=== PATIENT | female | born 1955 | race Two or more races ===

== ENCOUNTER 2017-07-30 08:06 | Day surgery (SDC) | payer OTHER ==
[2017-07-29 15:08] VITALS: BMI 25.0
[2017-07-30 10:09] VITALS: TEMP 97.8
[2017-07-30] MEDS ORDERED: PROPOFOL 20 ML ONE ×5 (10:18)
[2017-07-30 13:07] VITALS: BP 114/68; PULSE 69
--- NOTE | 2017-08-02 16:40 | PATH ---
Surgical Pathology Report Patient Name: DILIP RAIN [facility]. Rec. #: [id number] /Age/Gender: 1955 (Age: 61) / F Account: [id number] Location: [facility]-ENDOSCOPY Taken: 07/30/2017 Received: 07/30/2017 Reported: 08/02/2017 Physicians: Umberto Fermin M.D. Specimen(s) Received A: BX SIGMOID POLYP B: BX TRANSVERSE COLON POLYP C: BX RECTAL POLYP Clinical History Colon screening Diverticulosis, sigmoid and transverse colon polyps, redundant sigmoid, hemorrhoids, rectal polyp Final Diagnosis A. SIGMOID, POLYP, BIOPSY: POLYPOID COLONIC MUCOSA WITHOUT SIGNIFICANT PATHOLOGIC FINDINGS. B. TRANSVERSE COLON, POLYP, BIOPSY: POLYPOID COLONIC MUCOSA WITH PROMINENT LYMPHOID AGGREGATE. C. RECTUM, POLYP, BIOPSY: POLYPOID SQUAMOCOLUMNAR MUCOSA WITHOUT SIGNIFICANT PATHOLOGIC FINDINGS. Electronically Signed Zulma Diego M.D. Gross Description A. Received in formalin, labeled "biopsy sigmoid polyp" is a henriquez, irregular portion of soft tissue measuring 0.2 cm. in greatest dimension. The specimen is submitted in toto in one cassette. B. Received in formalin, labeled "biopsy transverse colon polyp" are 4 henriquez, irregular portions of soft tissue ranging from 0.1-0.4 cm. in greatest dimension. The specimens are submitted in toto in one cassette. C. Received in formalin, labeled "biopsy rectal polyp" is a henriquez, irregular portion of soft tissue measuring 0.2 cm. in greatest dimension. The specimen is submitted in toto in one cassette. 07/30/201707/30/2017
== END 2017-07-30 11:20 | disposition home or self-care (01) ==
LOC: JASU-ENDO 08:06
PROVIDERS: ATTEND Internal Medicine Gastroenterology
PROC: 0DBL8ZX Excision of Transverse Colon, Via Natural or Artificial Opening Endoscopic, Diagnostic (ICD-10-PCS; 2017-07-30)
PROC: 0DBN8ZX Excision of Sigmoid Colon, Via Natural or Artificial Opening Endoscopic, Diagnostic (ICD-10-PCS; principal; 2017-07-30 09:00)
DX: Z12.11 Encounter for screening for malignant neoplasm of colon (principal); D12.5 Benign neoplasm of sigmoid colon; D12.3 Benign neoplasm of transverse colon; K57.30 Diverticulosis of large intestine without perforation or abscess without bleeding
CPT/HCPCS: 88305-TC

== ENCOUNTER 2020-07-10 14:45 | Emergency (ER) | payer OTHER ==
[2020-07-10] MEDS ORDERED: IBUPROFEN 600 MG TABLET (FP) PO ONE ×2 (15:01→15:23)
--- NOTE | 2020-07-10 15:01 | PDOC ---
Rapid Medical Evaluation Time Seen by Provider: 07/10/20 14:57 Medical Evaluation: Allergies Allergy/AdvReac Type Severity Reaction Status Date / Time No Known Allergies Allergy Verified 04/10/13 18:17 07/10/20 14:58 I have performed a brief in person evaluation of this patient. CC: left ankle pain s/p slip and fall 1 week ago PE: Foot diffusely tender. No bony deformity noted. No pain with calf squeeze Orders: xray, Motrin Patient will proceed to ED for further evaluation. Discharge Disposition - Diagnosis Left ankle pain - Referrals - Patient Instructions - Post Discharge Activity
[2020-07-10 15:02] VITALS: BP 106/67; PULSE 86; TEMP 98.3; BMI 26.6
--- OUTSIDE RECORDS SUMMARY | 2020-07-10 15:10 | XMS ---
:1955 Author Organization [facility] Care Team Providers Name Role Phone ED STAFF PHYSICIANMARS Unavailable Unavailable ED STAFF PHYSICIAN, STAFF Unavailable Unavailable ED STAFF PHYSICIANJAN Unavailable Unavailable Re-disclosure Warning The records that you are about to access may contain information from federally- assisted alcohol or drug abuse programs. If such information is present, then the following federally mandated warning applies: This information has been disclosed to you from records protected by federal confidentiality rules (42 CFR part 2). The federal rules prohibit you from making any further disclosure of this information unless further disclosure is expressly permitted by the written consent of the person to whom it pertains or as otherwise permitted by 42 CFR part 2. A general authorization for the release of medical or other information is NOT sufficient for this purpose. The Federal rules restrict any use of the information to criminally investigate or prosecute any alcohol or drug abuse patient.The records that you are about to access may contain highly sensitive health information, the redisclosure of which is protected by Article 27-F of the [place] State Public Health law. If you continue you may haveaccess to information: Regarding HIV / AIDS; Provided by facilities licensed or operated by the [facility] Office of Mental Health; or Provided by the [facility] Office for People With Developmental Disabilities. If such information is present, then the following [facility] mandated warning applies: This information has been disclosed to you from confidential records which are protected by state law. State law prohibits you from making any further disclosure of this information without the specific written consent of the person to whom it pertains, or as otherwise permitted by law. Any unauthorized further disclosure in violation of state law may result in a fine or detention sentence or both. A general authorization for the release of medical or other information is NOT sufficient authorization for further disclosure. Encounters Encounter Providers Location Date Indications Data Source(s ) Emergency Attender: MARS ED H 09/04/2019 [facility] STAFF 01:01:00 PM EST Medical C enter PHYSICIANAttender: - 09/04/2019 STAFF ED STAFF 05:35:00 PM EST PHYSICIANAdmitter: MARS ED STAFF PHYSICIAN Patient discharged. Emergency Attender: JAN ED STAFF H 08/31/2019 11:13:00 AM [facility] PHYSICIANAttender: MARS [place] EST - 08/31/2019 [facility] STAFF PHYSICIANAttender: STAFF 01:24:00 PM EST ED STAFF PHYSICIANAdmitter: JAN ED STAFF PHYSICIAN Patient discharged. Outpatient [facility] Care 05/17/2019 12:00:00 AM eCW3 ([facility] A28 EDT - 05/17/2019 12:00:00 [facility]) AM EDT Medications Medication Brand Start Product Dose Route Administrative Pharmacy [facility] Indications Reaction Description Data Name Date Form Instructions Instructions Source(s) Diclofenac Diclof 03/28/ active Diclofen ac eCW3 Sodium 0.01 2019 Sodium 1 % (H udson MG/MG Sodium 12:00: [facility] Topical Gel 1 % 00 AM [facility] Diclofenac EDT Care) Sodium 1 % Humidifier Humidi 01/06/ active Humidifi er - eCW3 - fier - 2019 ([place] 12:00: [facility] 00 AM Health EDT Care) Loratadine Lorata 12/31/ 1.0 active Loratadi ne eCW3 10 MG Oral dine 2019 {tabl 10 MG ([place] Tablet 10 MG 12:00: et} [facility] 00 AM Health EDT Care) Ibuprofen Advil 05/17/ suspend Advil 200 MG eCW3 200 MG Oral 200 MG 2018 ed ([place] Tablet 12:00: [facility] [Advil] 00 AM Health Advil 200 EDT Care) MG Ibuprofen Advil 05/17/ active Advil 200 MG eCW3 200 MG Oral 200 MG 2019 ([place] Tablet 12:00: [facility] [Advil] 00 AM Health Advil 200 EDT Care) MG Insurance Providers Payer name Policy type Policy ID Covered Covered constitution party's Policy P nayana / Coverage constitution party ID relationship to Glaser Inf ormation type glaser MVP [place] [id number] SP [id number] HMO MVP/HHP O [id number] 01 [id number] O MVP/HHP O [id number] 01 [id number] 300 [place] O [id number] 01 [id number] 300 HEALTH BELLAMY O [id number] 01 [id number] 300 HEALTH [place] [id number] self [id number] HEALTH Problems, Conditions, and Diagnoses Code Display Name Description Problem Type Effective Data Sour ce(s) Dates G43.009 Migraine without Migraine without Problem 01/01/2020 eC W3 ([place] aura and without aura and without 12:00:00 AM [facility] status status EDT Care) migrainosus, not migrainosus, not intractable intractable J31.0 Other rhinitis Other rhinitis Problem 01/01/2020 eCW3 ( [place] 12:00:00 AM [facility] EDT Care) M54.32 Sciatica, left Sciatica, left Problem 12/04/2019 eCW3 ( [place] side side 12:00:00 AM [facility] EDT Care) M54.32 Sciatica, left Sciatica, left Problem 12/04/2019 eCW3 ( [place] side side 12:00:00 AM [facility] EDT Care) E55.9 Vitamin D Vitamin D Problem 12/02/2019 eCW3 ([place] deficiency deficiency 12:00:00 AM [facility] EDT Care) E55.9 Vitamin D Vitamin D Problem 12/02/2019 eCW3 ([place] deficiency deficiency 12:00:00 AM [facility] EDT Care) H35.372 Epiretinal Epiretinal Problem 11/10/2019 eCW3 ([place] membrane (ERM) of membrane (ERM) of 12:00:00 AM [facility] left eye left eye EST Care) H35.372 Epiretinal Epiretinal Problem 11/10/2019 eCW3 ([place] membrane (ERM) of membrane (ERM) of 12:00:00 AM [facility] left eye left eye EST Care) K90.49 Food intolerance Food intolerance Problem 10/27/2019 eC W3 ([place] 12:00:00 AM [facility]) K90.49 Food intolerance Food intolerance Problem 10/27/2019 eC W3 ([place] 12:00:00 AM [facility]) I10 Essential ESSENTIAL Diagnosis 09/04/2019 [facility] (primary) (PRIMARY) 01:01:00 PM Medical B[facility] r hypertension HYPERTENSION EST N39.0 Urinary tract URINARY TRACT Diagnosis 09/04/2019 [facility] barajass infection, site INFECTION, SITE 01:01:00 PM Med ical Center not specified NOT SPECIFIED EST K59.00 Constipation, CONSTIPATION, Diagnosis 09/04/2019 [facility] sephs unspecified UNSPECIFIED 01:01:[address] EST R10.30 Lower abdominal LOWER ABDOMINAL Diagnosis 09/04/2019 [facility] pain, unspecified PAIN, UNSPECIFIED 01:01:00 PM Medical Center EST Y99.8 Other external OTHER EXTERNAL Diagnosis 08/31/2019 [facility] cause status CAUSE STATUS 11:13:00 AM Medical C enter EST Y92.89 Other specified OTH PLACES THE Diagnosis 08/31/2019 [facility] places as the PLACE OF 11:13:[address]ter place of OCCURRENCE OF THE EST occurrence of the EXTERNAL CAUSE external cause Y93.9 Activity, ACTIVITY, Diagnosis 08/31/2019 [facility] unspecified UNSPECIFIED 11:13:[address] EST X58.XXXA Exposure to other EXPOSURE TO OTHER Diagnosis 08/31/2019 [facility] specified factors, SPECIFIED 11:13:00 AM Medic al Center initial encounter FACTORS, INITIAL EST ENCOUNTER S39.012A Strain of muscle, STRAIN OF MUSCLE, Diagnosis 08/31/2019 [facility] fascia and tendon FASCIA AND TENDON 11:13:00 AM Medical Center of lower back, OF LOWER BACK, EST initial encounter INIT M54.5 Low back pain LOW BACK PAIN Diagnosis 08/31/2019 [facility] sephs 11:13:00 AM Medical Cente r EST Results ID Date Data Source [id number] 03/05/2020 09:28:00 AM EDT [facility] Name Value Range Interpretation Description Data Sup porting Code Source(s) Document(s ) SARS [facility] CORONAVIRUS 2 RNA This lab was ordered by [facility] and reported by [facility]. ID Date Data Source Liver 09/04/2019 02:12:00 PM EST [facility] [id number] Name Value Range Interpretation Description Data Sup porting Code Source(s) Document(s ) Alkaline 38-126 <content [facility] phosphatase styleCode="Bold"> Frida [Enzymatic Alkaline Medical activity/volume] Phosphatase (ALP) Cente r in Serum or Plasma </content>68 IU/L<content styleCode="Italic s"> (38-126 IU/L)</content> Aspartate 14-36 <content [facility] aminotransferase styleCode="Bold"> Torres hs [Enzymatic Aspartate Medical activity/volume] Aminotransferase Center in Serum or Plasma (AST) </content>28 IU/L<content styleCode="Italic s"> (14-36 IU/L)</content> Bilirubin.total 0.2-1.3 <content Saint [Mass/volume] in styleCode="Bold"> Torres hs Serum or Plasma Bilirubin Total Medical </content>0.4 Center MG/DL<content styleCode="Italic s"> (0.2-1.3 MG/DL)</content> Alanine 7-30 <content [facility] aminotransferase styleCode="Bold"> [facility] hs [Enzymatic Alanine Medical activity/volume] Aminotransferase Center in Serum or Plasma (ALT) </content>19 IU/L<content styleCode="Italic s"> (7-30 IU/L)</content> UNK 0.0-0.3 <content Saint styleCode="Bold"> Frida Bilirubin, Direct Medical </content>< 0.2 Center MG/DL<content styleCode="Italic s"> (0.0-0.3 MG/DL)</content> Albumin 3.5-5.0 <content [facility] [Mass/volume] in styleCode="Bold"> Torres hs Serum or Plasma Albumin Medical </content>4.3 Center G/DL<content styleCode="Italic s"> (3.5-5.0 G/DL)</content> ID Date Data Source HematologyRou.[id number] 09/04/2019 02:12:00 PM EST [facility] 0500 Name Value Range Interpretation Description Data Sup porting Code Source(s) Document(s ) Leukocytes 4.4-11.0 <content Saint [#/volume] in styleCode="Bold Frida Blood by ">White Blood Medical Automated count Cell Count Center </content>5.13 KCUMM<content styleCode="Ital ics"> (4.4-11.0 KCUMM)</content > Erythrocytes 4.0-5.1 <content Saint [#/volume] in styleCode="Bold Frida Blood by ">Red Blood Medical Automated count Cell Count Center </content>4.65 MCUMM<content styleCode="Ital ics"> (4.0-5.1 MCUMM)</content > Erythrocyte mean 80.0-100 <content [facility] corpuscular .0 styleCode="Bold Frida volume [Entitic ">Mean Medical volume] by Corpuscular Center Automated count Volume </content>88.8 FL<content styleCode="Ital ics"> (80.0-100.0 FL)</content> Hemoglobin 12.3-16. <content Saint [Mass/volume] in 0 styleCode="Bold Frida Blood ">Hemoglobin Medical </content>14.1 Center G/DL<content styleCode="Ital ics"> (12.3-16.0 G/DL)</content> Hematocrit 36.0-46. <content Saint [Volume 0 styleCode="Bold Frida Fraction] of ">Hematocrit Medical Blood by </content>41.3 Center Automated count %<content styleCode="Ital ics"> (36.0-46.0 %)</content> Erythrocyte mean 32.0-37. <content [facility] corpuscular 0 styleCode="Bold Frida hemoglobin ">Mean Corpus. Medical concentration Hgb Center [Mass/volume] by Concentration Automated count (MCHC) </content>34.1 G/DL<content styleCode="Ital ics"> (32.0-37.0 G/DL)</content> Erythrocyte mean 26.0-34. <content [facility] corpuscular 0 styleCode="Bold Frida hemoglobin ">Mean Medical [Entitic mass] Corposcular Center by Automated Hemoglobin count </content>30.3 PG<content styleCode="Ital ics"> (26.0-34.0 PG)</content> Erythrocyte 11.5-14. <content [facility] distribution 5 styleCode="Bold Frida width [Ratio] by ">Red Cell Medical Automated count Distribution Center Width </content>12.6 %<content styleCode="Ital ics"> (11.5-14.5 %)</content> UNK 0 <content Saint styleCode="Bold Frida ">Nucleated Red Medical Blood Cell Center </content>0.0 /100<content styleCode="Ital ics"> (0 /100)</content> UNK 0.0 <content Saint styleCode="Bold Frida ">Nucleated Red Medical Blood Cell Center Count </content>0.00 KCUMM<content styleCode="Ital ics"> (0.0 KCUMM)</content > Platelets 130-400 <content Saint [#/volume] in styleCode="Bold Frida Blood by ">Platelet Medical Automated count Count Center </content>207 KCUMM<content styleCode="Ital ics"> (130-400 KCUMM)</content > Platelet mean 8.0-11.0 <content Saint volume [Entitic styleCode="Bold Frida volume] in Blood ">Mean Platelet Medical by Automated Volume Center count </content>10.2 FL<content styleCode="Ital ics"> (8.0-11.0 FL)</content> ID Date Data Source GFR(Creatinine).[id number] 09/04/2019 02:12:00 PM EST [facility] 0-0500 Name Value Range Interpretation Code Description Data Carolyn rce(s) Supporting Document(s ) UNK > 60 <content [facility] styleCode="Bold"> Medical Cent er EGFR </content>107 GFR<content styleCode="Italic s"> (> 60 GFR)</content> ID Date Data Source CHMROUTINECCDA.[id number] 09/04/2019 02:12:00 PM EST [facility] -0500 Name Value Range Interpretation Description Data Sup porting Code Source(s) Document(s ) Lipase 23-300 <content [facility] [Enzymatic styleCode="Bold Medical activity/vo ">Lipase Center lume] in </content>128 Serum or IU/L<content Plasma styleCode="Ital ics"> (23-300 IU/L)</content> UNK 30-110 <content [facility] styleCode="Bold Medical ">Amylase Center </content>97 IU/L<content styleCode="Ital ics"> (30-110 IU/L)</content> ID Date Data Source [facility].[id number] 09/04/2019 02:12:00 PM EST [facility] Name Value Range Interpretation Description Data Sup porting Code Source(s) Document(s ) Carbon dioxide, 22-30 <content [facility] total styleCode="Bold"> Frida [Moles/volume] in Carbon Dioxide Medical Serum or Plasma </content>29 Center MEQ/L<content styleCode="Italic s"> (22-30 MEQ/L)</content> Sodium 137-145 <content Saint [Moles/volume] in styleCode="Bold"> Larry phs Serum or Plasma Sodium Medical </content>139 Center MEQ/L<content styleCode="Italic s"> (137-145 MEQ/L)</content> Potassium 3.5-5.3 <content [facility] [Moles/volume] in styleCode="Bold"> Larry phs Serum or Plasma Potassium Medical </content>4.4 Center MEQ/L<content styleCode="Italic s"> (3.5-5.3 MEQ/L)</content> Chloride 98-107 <content [facility] [Moles/volume] in styleCode="Bold"> Larry phs Serum or Plasma Chloride Medical </content>104 Center MEQ/L<content styleCode="Italic s"> (98-107 MEQ/L)</content> UNK > 60 <content Saint styleCode="Bold"> Frida EGFR Medical </content>107 Center GFR<content styleCode="Italic s"> (> 60 GFR)</content> Glucose 74-106 <content [facility] [Mass/volume] in styleCode="Bold"> Torres hs Serum or Plasma Glucose Medical </content>93 Center MG/DL<content styleCode="Italic s"> (74-106 MG/DL)</content> UNK 7-17 <content Saint styleCode="Bold"> Frida BUN </content>14 Medical MG/DL<content Center styleCode="Italic s"> (7-17 MG/DL)</content> Calcium 8.4-10. <content [facility] [Mass/volume] in 2 styleCode="Bold"> Torres hs Serum or Plasma Calcium Medical </content>10.0 Center MG/DL<content styleCode="Italic s"> (8.4-10.2 MG/DL)</content> Creatinine 0.5-1.3 <content [facility] [Mass/volume] in styleCode="Bold"> [facility] hs Serum or Plasma Creatinine Medical </content>0.6 Center MG/DL<content styleCode="Italic s"> (0.5-1.3 MG/DL)</content> Aspartate 14-36 <content [facility] aminotransferase styleCode="Bold"> [facility] hs [Enzymatic Aspartate Medical activity/volume] Aminotransferase Center in Serum or Plasma (AST) </content>28 IU/L<content styleCode="Italic s"> (14-36 IU/L)</content> Alkaline 38-126 <content [facility] phosphatase styleCode="Bold"> Frida [Enzymatic Alkaline Medical activity/volume] Phosphatase (ALP) Cente r in Serum or Plasma </content>68 IU/L<content styleCode="Italic s"> (38-126 IU/L)</content> Bilirubin.total 0.2-1.3 <content [facility] [Mass/volume] in styleCode="Bold"> [facility] hs Serum or Plasma Bilirubin Total Medical </content>0.4 Center MG/DL<content styleCode="Italic s"> (0.2-1.3 MG/DL)</content> Alanine 7-30 <content [facility] aminotransferase styleCode="Bold"> [facility] hs [Enzymatic Alanine Medical activity/volume] Aminotransferase Center in Serum or Plasma (ALT) </content>19 IU/L<content styleCode="Italic s"> (7-30 IU/L)</content> Albumin 3.5-5.0 <content [facility] [Mass/volume] in styleCode="Bold"> Torres hs Serum or Plasma Albumin Medical </content>4.3 Center G/DL<content styleCode="Italic s"> (3.5-5.0 G/DL)</content> ID Date Data Source Urinalysis.[id number] 09/04/2019 02:02:00 PM [facility] 0 Name Value Range Interpretation Description Data Sup porting Code Source(s) Document(s ) Color of Urine YELLOW <content Saint styleCode="[facility] d">Color, Medical Urine Center </content>YELL OW <content styleCode="Ann lics"> (YELLOW )</content> UNK CLEAR <content Saint styleCode="[facility] d">Urine Medical Clarity Center </content>IVON R <content styleCode="Ann lics"> (CLEAR )</content> Glucose NEGATIVE <content Saint [Mass/volume] styleCode="[facility]ky Abrahams in Urine by d">Urine Medical Test strip Glucose Center </content>NEGA TIVE MG/DL<content styleCode="Ann lics"> (NEGATIVE MG/DL)</conten t> Ketones NEGATIVE <content [facility] [Mass/volume] styleCode="Nikky Abrahams in Urine by d">Urine Medical Test strip Ketone Center </content>NEGA TIVE MG/DL<content styleCode="Ann lics"> (NEGATIVE MG/DL)</conten t> UNK NEGATIVE <content Saint styleCode="Nikky Frida d">Urine Medical Bilirubin Center </content>NEGA TIVE <content styleCode="Ann lics"> (NEGATIVE )</content> Hemoglobin NEGATIVE <content Saint [Presence] in styleCode="Nikky Abrahams Urine by Test d">Urine Blood Medical strip </content>MODE Center RATE <content styleCode="Ann lics"> (NEGATIVE )</content> Specific 1.015-1.02 Below low normal <content [facility] gravity of 5 styleCode="Nikky Abrahams Urine by Test d">Urine Medical strip Specific Center [place] </content>1.01 0 L<content styleCode="Ann lics"> (1.015-1.025 )</content> pH of Urine by 4.5-8.0 <content Saint Test strip styleCode="Nikky Frida d">Urine pH Medical </content>7.0 Center <content styleCode="Ann lics"> (4.5-8.0 )</content> Protein NEGATIVE <content Saint [Mass/volume] styleCode="Nikky Abrahams in Urine by d">Urine Medical Test strip Protein Center </content>NEGA TIVE MG/DL<content styleCode="Ann lics"> (NEGATIVE MG/DL)</conten t> UNK 0-3 <content Saint styleCode="Nikky Frida d">Urine Red Medical Blood Cell Center </content>3-5 HPF<content styleCode="Ann lics"> (0-3 HPF)</content> Leukocyte NEGATIVE <content Saint esterase styleCode="Nikky Abrahams [Presence] in d">Urine Medical Urine by Test Leukocyte Center strip </content>MODE RATE <content styleCode="Ann lics"> (NEGATIVE )</content> Nitrite NEGATIVE <content Saint [Presence] in styleCode="Nikky Abrahams Urine by Test d">Urine Medical strip Nitrite Center </content>NEGA TIVE <content styleCode="Ann lics"> (NEGATIVE )</content> Urobilinogen 0.2-1.0 <content Saint [Units/volume] styleCode="Nikky Abrahams in Urine by d">Urine Medical Test strip Urobilinogen Center </content>0.2 MG/DL<content styleCode="Nan lics"> (0.2-1.0 MG/DL)</conten t> UNK 0-3 <content Saint styleCode="Nikky Frida d">Urine White Medical Blood Cell Center </content>3-5 HPF<content styleCode="Ann lics"> (0-3 HPF)</content> UNK NONE SEEN <content Saint styleCode="Nikky Frida d">Epithelial Medical Cell Center </content>2-5 HPF<content styleCode="Ann lics"> (NONE SEEN HPF)</content> ID Date Data Source Microbiology.[id number] 09/04/2019 02:02:00 PM EST [facility] 500 Name Value Range Interpretation Code Description Data Carolyn rce(s) Supporting Document(s ) UNK <item><content [facility] styleCode="Bold">Cul Medical C enter ture Status </content>
<tabl e><tbody><tr><td>Spe cimen Number:</td><td>[id number]</td></tr><tr>< td>Sample Collection Date/Time: </td><td>09/04/2019 2:02 PM</td></tr><tr><td> Specimen Source:</td><td>URIN E</td></tr><tr><td>C ulture Status:</td><td>Asya l </td></tr><tr><td>Cu lture Report:</td><td>NO FURTHER WORKUP </td></tr><tr><td>Ur ine Culture:</td><td>Col lection Plate Date: 09/04/2019 14:09 </td></tr><tr><td>Or ganism 1:</td><td>CORYNEBAC TERIUM SPECIES </td></tr></tbody></ table>
<table border="2"><tbody><t r><td></td><td>1</td ></tr><tr><td>Commen t</td><td></td></tr> <tr><td>Result Value</td><td>CORYNE BACTERIUM SPECIES </td></tr><tr><td>Re sult Status</td><td>Final Result</td></tr><tr> <td></td><td></td></ tr></tbody></table>< /item> UNK <item><content [facility] styleCode="Bold">Cul Medical C enter ture Report </content>
<tabl e><tbody><tr><td>Spe cimen Number:</td><td>[id number]</td></tr><tr>< td>Sample Collection Date/Time: </td><td>09/04/2019 2:02 PM</td></tr><tr><td> Specimen Source:</td><td>URIN E</td></tr><tr><td>U rine Culture:</td><td>Col lection Plate Date: 09/04/2019 14:09 </td></tr><tr><td>Cu lture Status:</td><td>Asya l </td></tr><tr><td>Cu lture Report:</td><td>NO FURTHER WORKUP </td></tr><tr><td>Or ganism 1:</td><td>CORYNEBAC TERIUM SPECIES </td></tr></tbody></ table>
<table border="2"><tbody><t r><td></td><td>1</td ></tr><tr><td>Commen t</td><td></td></tr> <tr><td>Result Value</td><td>CORYNE BACTERIUM SPECIES </td></tr><tr><td>Re sult Status</td><td>Final Result</td></tr><tr> <td></td><td></td></ tr></tbody></table>< /item> ID Date Data Source Urinalysis.[id number] 08/31/2019 11:47:00 AM EST [facility] 0 Name Value Range Interpretation Description Data Sup porting Code Source(s) Document(s ) Color of Urine YELLOW <content [facility] styleCode="Nikky Frida d">Color, Medical Urine Center </content>YELL OW <content styleCode="Ann lics"> (YELLOW )</content> UNK NEGATIVE <content [facility] styleCode="Nikky Frida d">Urine Medical Bilirubin Center </content>NEGA TIVE <content styleCode="Ann lics"> (NEGATIVE )</content> UNK CLEAR <content [facility] styleCode="Nikky Frida d">Urine Medical Clarity Center </content>IVON R <content styleCode="Ann lics"> (CLEAR )</content> Ketones NEGATIVE <content Saint [Mass/volume] styleCode="Nikky Abrahams in Urine by d">Urine Medical Test strip Ketone Center </content>NEGA TIVE MG/DL<content styleCode="Ann lics"> (NEGATIVE MG/DL)</conten t> Glucose NEGATIVE <content [facility] [Mass/volume] styleCode="Nikky Abrahams in Urine by d">Urine Medical Test strip Glucose Center </content>NEGA TIVE MG/DL<content styleCode="Ann lics"> (NEGATIVE MG/DL)</conten t> Specific 1.015-1.02 <content [facility] gravity of 5 styleCode="Nikky Abrahams Urine by Test d">Urine Medical strip Specific Center [place] </content>1.01 5 <content styleCode="Ann lics"> (1.015-1.025 )</content> pH of Urine by 4.5-8.0 <content Saint Test strip styleCode="Nikky Frida d">Urine pH Medical </content>7.5 Center <content styleCode="Ann lics"> (4.5-8.0 )</content> Hemoglobin NEGATIVE <content Saint [Presence] in styleCode="Nikky Abrahams Urine by Test d">Urine Blood Medical strip </content>NEGA Center TIVE <content styleCode="Ann lics"> (NEGATIVE )</content> Protein NEGATIVE <content Saint [Mass/volume] styleCode="Nikky Frida in Urine by d">Urine Medical Test strip Protein Center </content>NEGA TIVE MG/DL<content styleCode="Ann lics"> (NEGATIVE MG/DL)</conten t> Nitrite NEGATIVE <content Saint [Presence] in styleCode="[facility]ky [facility] Urine by Test d">Urine Medical strip Nitrite Center </content>NEGA TIVE <content styleCode="Ann lics"> (NEGATIVE )</content> Leukocyte NEGATIVE <content Saint esterase styleCode="Nikky Abrahams [Presence] in d">Urine Medical Urine by Test Leukocyte Center strip </content>NEGA TIVE <content styleCode="Ann lics"> (NEGATIVE )</content> Urobilinogen 0.2-1.0 <content [facility] [Units/volume] styleCode="Nikky Abrahams in Urine by d">Urine Medical Test strip Urobilinogen Center </content>0.2 MG/DL<content styleCode="Ann lics"> (0.2-1.0 MG/DL)</conten t> Procedure Social History Code Duration Value Status Description Data Source(s ) Smoking 03/28/2020 Never Smoker completed Never Smoker eCW3 ([facility] 12:00:00 AM [facility]) Smoking 12/08/2019 Never Smoker completed Never Smoker eCW3 ([facility] 12:00:00 AM [facility]) Smoking 09/04/2019 Denies Ever completed Denies Ever Smoked [facility] 01:47:00 PM EST Smoked Medical C enter Smoking 09/04/2019 Denies Ever completed Denies Ever Smoked [facility] 01:45:00 PM EST Smoked Medical C enter Smoking 09/04/2019 Denies Ever completed Denies Ever Smoked [facility] 01:45:00 PM EST Smoked Medical C enter Smoking 09/04/2019 Denies Ever completed Denies Ever Smoked [facility] 01:14:00 PM EST Smoked Medical C enter Smoking 08/31/2019 Denies Ever completed Denies Ever Smoked [facility] 11:41:00 AM EST Smoked [facility] enter Smoking 08/31/2019 Denies Ever completed Denies Ever Smoked [facility] 11:28:00 AM EST [facility] enter Smoking 05/17/2019 Never Smoker completed Never Smoker eCW3 ([facility] on 12:00:00 AM [facility]) Vital Signs ID Date Data Source UNK Name Value Range Interpretation Code Description Data Source(s) Body weight 60.542283 kg 60.085934 kg [facility] Measured [facility] Body temperature 36.498613 36.919572 [facility] Respiratory rate 18 /min 18 /min [facility] Oxygen saturation 100 % 100 % [facility] Arterial blood [facility] by Pulse oximetry Heart rate 83 /min 83 /min [facility] Body height 165.842615 165.359336 cm [facility] Diastolic blood 83 mm[Hg] 83 mm[Hg] [facility] Systolic blood 116 mm[Hg] 116 mm[Hg] [facility] Body mass index 22.0 kg/m2 22.0 kg/m2 [facility] (BMI) [Ratio] Medical [facility] Body weight 65.396025 kg 65.142234 kg [facility] Measured [facility] Body temperature 36.854022 36.942489 [facility] Respiratory rate 18 /min 18 /min [facility] Oxygen saturation 100 % 100 % [facility] Arterial blood [facility] by Pulse oximetry Heart rate 76 /min 76 /min [facility] Body height 160.493859 160.056379 cm [facility] Diastolic blood 75 mm[Hg] 75 mm[Hg] [facility] Systolic blood 120 mm[Hg] 120 mm[Hg] [facility] Body mass index 25.6 kg/m2 25.6 kg/m2 [facility] (BMI) [Ratio] [facility] Diastolic blood 72 mm[Hg] 72 mm[Hg] eCW3 ([facility]) Systolic blood 109 mm[Hg] 109 mm[Hg] eCW3 ([facility]) Body temperature 98.3 [degF] 98.3 [degF] eCW3 ( [facility]) Body mass index 25.15 kg/m2 25.15 kg/m2 eCW3 ([facility] (BMI) [Ratio] [facility]) Body weight 142 [lb_av] 142 [lb_av] eCW3 ([facility]) Body height 63 [in_i] 63 [in_i] eCW3 ([facility]) Patient Treatment Plan of Care Planned Activity Planned Date Details Description Data Source (s) Diclofenac Sodium 0.01 03/28/2020 12:00:00 eCW3 ([facility] MG/MG Topical Gel [facility] Car e) Ibuprofen 200 MG Oral 05/17/2019 12:00:00 eCW3 ([facility] Tablet [Advil] [facility])
--- NOTE | 2020-07-10 15:40 | PDOC ---
History of Present Illness - General Chief Complaint: Injury Stated Complaint: FALL Time Seen by Provider: 07/10/20 14:57 - History of Present Illness Initial Comments: 07/10/20 15:36 64-year-old female denies comorbidities presents for evaluation of left foot and ankle pain after a trip and fall in a store a week ago Past History - Medical History Allergies/Adverse Reactions: Allergies Allergy/AdvReac Type Severity Reaction Status Date / Time No Known Allergies Allergy Verified 07/10/20 15:02 Home Medications: Ambulatory Orders Metoprolol Tartrate [Lopressor -] 25 mg PO DAILY 12/03/12 Acetaminophen [Tylenol .Regular Strength -] 650 mg PO Q6H PRN #0 tablet 04/11/13 Aspirin [ASA -] 81 mg PO DAILY #0 tab.chew 04/11/13 Dexlansoprazole [Dexilant] 60 mg PO DAILY #0 cap.mp 04/11/13 Omeprazole [Prilosec (RX)] 40 mg PO BID #0 04/11/13 Anemia: Yes Asthma: No Cancer: No Cardiac Disorders: Yes (palpitations) CVA: No COPD: No CHF: No Dementia: No Diabetes: No GI Disorders: Yes (GERD, IBS, ESOPHAGEAL DYSMOTILITY, ESOPHAGITIS) Disorders: No HTN: No Hypercholesterolemia: No Liver Disease: No Seizures: No - Surgical History Abdominal Surgery: No Appendectomy: No Cardiac Surgery: No Cholecystectomy: No Lung Surgery: No Neurologic Surgery: No Orthopedic Surgery: No - Reproductive History Is Patient Now?: No - Psycho-Social/Smoking History Smoking Status: No Smoking History: Never smoked Have you smoked in the past 12 months: No Number of Cigarettes Smoked Daily: 0 Information on smoking cessation initiated: No - Substance Abuse Hx (Audit-C & DAST Scrn) How often the patient has a drink containing alcohol: Never Score: In Men: 4 or > Positive; In Women: 3 or > Positive: 0 Screen Result (Pos requires Nsg. Audit-10AR): Negative In the last yr the pt used illegal drug/Rx for NonMed reason: No Score: Yes response is considered Positive: 0 Screen Result (Positive result requires Nsg. DAST-10): Negative Review of Systems - Review of Systems Musculoskeletal: Yes: Joint Pain *Physical Exam - Vital Signs Last Vital Signs Temp Pulse Resp BP Pulse Ox 98.3 F 86 16 106/67 100 07/10/20 14:59 07/10/20 14:59 07/10/20 14:59 07/10/20 14:59 07/10/20 14:59 - Physical Exam 07/10/20 15:37 Left ankle skin color and temperature normal range of motion is slightly limited. There is no tenderness about the proximal fibula or along its distal course. No tenderness about the medial lateral malleolus base of the fifth metatarsal or navicular. Mild tenderness over the ATFL,And first MTPJ without instability no gross sensorimotor deficits neurovascular intact. ED Treatment Course - Medications Given in the ED: ED Medications Discontinued Medications Generic Name Dose Route Start Last Admin Trade Name Freq PRN Reason Stop Dose Admin Ibuprofen 600 mg 07/10/20 15:01 07/10/20 15:25 Motrin - PO 07/10/20 15:02 600 mg ONCE ONE Administration Medical Decision Making - Medical Decision Making 07/10/20 15:37 No fracture or trauma mild arthritic changes left foot and ankle on radiograph today. Weight-bear as tolerated with Aircast hard soled shoe and crutches follow-up with Ortho Tylenol and Motrin for pain I have reviewed the pathophysiology with the patient. They are in agreement with the treatment plan all questions were answered to their satisfaction. Understanding for follow-up without fail was also conveyed to the patient. Again they are in agreement. Discharge - Discharge Information Problems reviewed: Yes Clinical Impression/Diagnosis: Left ankle pain, Foot sprain, Ankle sprain Condition: Stable Disposition: HOME - Admission No - Follow up/Referral Referrals: Wong Francis DO [Staff Physician] - - Patient Discharge Instructions Additional Instructions: Tylenol and Motrin as directed for pain. Weight-bear as tolerated with crutches [place] shoe and Aircast and without fail follow-up with orthopedic surgery in 1 to 2 days for further evaluation and treatment options. Return to the emergency room at any time for further evaluation and treatment or concerns. - Post Discharge Activity
== END 2020-07-10 16:27 | disposition home or self-care (01) ==
LOC: JERFT 14:45
DX: M79.651 Pain in right thigh (principal)
CPT/HCPCS: 73610-TC-LT-FY; 73630-TC-LT; 99284-25